=== PATIENT | female | born 1990 | race Caucasian/White ===

== ENCOUNTER 2021-08-22 20:13 | Inpatient (IN) | payer OTHER ==
[~2021-08-22] VITALS: Ht 144.8 cm; Wt 90.7 kg
[2021-08-22 20:57] LABS: HCT 36.7 % (37.0-47.0); HGB 12.7 g/dl (12.5-16.0); MCH 30.3 pg (25.0-31.0); MCHC 34.6 g/dL (32.0-36.0); MCV 87.6 fL (78.0-100.0); MPV 9.2 fL (6.0-9.5); RBC 4.19 M/uL (4.20-5.40); RDW 12.9 % (11.5-14.0); WBC 15.1 K/uL (4.0-10.5)
[2021-08-22 20:58] LABS: BILIRUBIN 1+ mg/dL (NEGATIVE); BLOOD 1+ Ery/uL (NEGATIVE); CLARITY CLOUDY (CLEAR); COLOR YELLOW (YELLOW); GLUCOSE (U) NORMAL (NORMAL); LEUKOCYTES 2+ Leu/uL (NEGATIVE); NITRITE NEGATIVE (NEGATIVE); PROTEIN 1+ mg/dL (NEGATIVE); SPECIFIC GRAVITY >=1.030 (1.001-1.030)
[2021-08-22 20:59] LABS: AMPHETAMINES NEGATIVE (NEGATIVE); BARBITURATES NEGATIVE (NEGATIVE); ECSTASY (MDMA) NEGATIVE (NEGATIVE); MARIJUANA (THC) NEGATIVE (NEGATIVE); METHADONE NEGATIVE (NEGATIVE); OPIATES NEGATIVE (NEGATIVE); OXYCODONE NEGATIVE (NEGATIVE)
[2021-08-22 21:10] LABS: BACTERIA 4+; SQUAMOUS EPITHELIAL CELLS 20-50; URINARY WBC TNTC
[2021-08-22 23:44] LABS: ALBUMIN 2.1 g/dL (3.4-5.0); BILIRUBIN - TOTAL 0.3 mg/dL (0.2-1.0); BUN/CREAT RATIO (CALC) 13.7 RATIO; CREATININE 0.51 mg/dL (0.51-0.95); GLOBULIN (CALCULATION) 4.5 g/dL; POTASSIUM 3.5 mmol/L (3.5-5.1); TOTAL PROTEIN 6.6 g/dL (6.4-8.2)
[2021-08-25 06:30] LABS: HCT 32.2 % (37.0-47.0); HGB 10.8 g/dl (12.5-16.0); MCH 30.4 pg (25.0-31.0); MCHC 33.5 g/dL (32.0-36.0); MCV 90.7 fL (78.0-100.0); MPV 9.6 fL (6.0-9.5); RBC 3.55 M/uL (4.20-5.40); RDW 12.8 % (11.5-14.0); WBC 20.9 K/uL (4.0-10.5)
== END 2021-08-25 19:06 | disposition home or self-care (01) | DRG 787 ==
LOC: FOB 20:13
PROVIDERS: Obstetrics & Gynecology; ADMIT Obstetrics & Gynecology
PROC: 3E0P7VZ Introduction of Hormone into Female Reproductive, Via Natural or Artificial Opening (ICD-10-PCS; 2021-08-22)
PROC: 10D00Z1 Extraction of Products of Conception, Low, Open Approach (ICD-10-PCS; principal; 2021-08-24 17:00)
DX: O62.1 Secondary uterine inertia (principal); D62 Acute posthemorrhagic anemia; O98.32 Other infections with a predominantly sexual mode of transmission complicating childbirth; O98.82 Other maternal infectious and parasitic diseases complicating childbirth; O24.429 Gestational diabetes mellitus in childbirth, unspecified control; Z37.0 Single live birth; Z3A.37 37 weeks gestation of pregnancy; O40.3XX0 Polyhydramnios, third trimester, not applicable or unspecified; O90.81 Anemia of the puerperium; Z20.822 Contact with and (suspected) exposure to COVID-19; O99.214 Obesity complicating childbirth; L30.8 Other specified dermatitis; B37.3 Candidiasis of vulva and vagina; N76.0 Acute vaginitis; A59.01 Trichomonal vulvovaginitis; B96.89 Other specified bacterial agents as the cause of diseases classified elsewhere; Z87.442 Personal history of urinary calculi
CPT/HCPCS: 36415; 80053; 80305; 81001; 82009; 82962; 86850; 86900; 86901; 90707; J0456; J0595; J0690; J1800; J1885; J2274; J2405; J7050; J7120; J7121; U0002